=== PATIENT | male | born 1960 | race Asian ===

== ENCOUNTER 2017-12-09 21:20 | Emergency (ER) | payer SELFPAY ==
[~2017-12-09] VITALS: Ht 165.1 cm; Wt 84.0 kg
[2017-12-09] MEDS ORDERED: EPINEPHrine 1:10,000 [1 MG/10 ML] SYRINGE IVP ONE (21:23)
[2017-12-09] MEDS ORDERED: SODIUM BICARBONATE [ADULT] 8.4% 50 MEQ/50 ML SYRINGE IVP ONE (21:23)
[2017-12-09] MEDS ORDERED: CALCIUM CHLORIDE 100 MG/ML 10 ML SYRINGE IVP ONE (21:23)
[2017-12-09 22:08] LABS: GLUCOSE,POINT OF CARE 214 MG/DL (70-110)
[2017-12-09 22:12] VITALS: BP 0/0
== END 2017-12-09 23:53 | disposition expired ==
LOC: EDBD 21:22 → EMS 21:22
DX: I46.9 Cardiac arrest, cause unspecified (principal)
CPT/HCPCS: 31500; 82962; 92950; 99291; J0171; J3490 ×2